=== PATIENT | female | born 1945 | race Two or more races ===

== ENCOUNTER 2022-01-30 10:15 | Day surgery (SDC) | payer OTHER ==
[2022-01-30] MEDS ORDERED: ALEVE220 M1 PO (13:50)
[2022-01-30] MEDS ORDERED: CEFADROXIL500 MG PO (13:50)
[2022-01-30] MEDS ORDERED: PERCOCET 5-3251 EACH PO (13:50)
== END 2022-01-30 16:50 | disposition home or self-care (01) ==
LOC: CIR.AMB 10:15
PROVIDERS: ATTEND Orthopaedic Surgery
DX: S52.692A Other fracture of lower end of left ulna, initial encounter for closed fracture (principal); M19.90 Unspecified osteoarthritis, unspecified site